=== PATIENT | female | born 1950 | race Two or more races ===

== ENCOUNTER 2020-05-07 07:58 | Day surgery (SDC) | payer MEDICARE, BC ==
[2020-05-07] VITALS (8 sets, daily range): BP systolic 97–129; BP diastolic 43–79
[~2020-05-07] VITALS: Ht 152.4 cm; Wt 57.2 kg
[~2020-05-07 07:58] MED LIST: ALENDRONATE SOD10 MG ORAL
[2020-05-07] MEDS ORDERED: LR 1000ml 1,000 ML IVLG SCH (08:18)
[2020-05-07] MEDS ORDERED: Midazolam 2mg/2ml Inj ONE (08:38)
[2020-05-07] MEDS ORDERED: fentaNYL 100 mcg/2 mL IV ONE (08:38)
--- NOTE | 2020-05-07 08:50 | Pre-Procedure Note/Attestation ---
Pre-Procedure Note/Attestation Complete Prior to Procedure Planned Procedure: not applicable Procedure Narrative: colonoscopy Indications for Procedure Pre-Operative Diagnosis: screening Attestation I attest that I discussed the nature of the procedure; its benefits; risks and complications; and alternatives (and the risks and benefits of such alternatives ), prior to the procedure, with the patient (or the patient's legal front desk representative). I attest that, if there was a reasonable possibility of needing a blood transfusion, the patient (or the patient's legal front desk representative) was given the [facility] standardized written summary, pursuant to the [place] Blood Safety Act ([place] Health and Safety Code # 1645, as amended). I attest that I re-evaluated the patient just prior to the surgery and that there has been no change in the patient's H&P, except as documented below: Rodolfo Quezada MD May 07, 2020 08:50
--- NOTE | 2020-05-07 08:51 | Short Stay Surgery H&P ---
History of Present Illness History of Present Illness Chief Complaint see office consult note HPI So Macario is a 69 year old female who was admitted on for Hx Of Polyps Patient History Allergies: Coded Allergies: No Known Allergies (Unverified , 04/21/15) Medication History Scheduled Alendronate Sodium* (Fosamax*), 10 MG ORAL DAILY, (Reported) Physical Exam Vital Signs Last Vital Signs Date Time Temp Pulse Resp B/P (MAP) Pulse Ox O2 Delivery O2 Flow Rate FiO2 05/07/20 08:40 97.4 59 18 97/64 97 Room Air Plan Attestation Are the patient's medical conditions optimized for surgery? Rodolfo Quezada MD May 07, 2020 08:51
[2020-05-07] MEDS ORDERED: LR 1000ml ONE (09:00)
--- NOTE | 2020-05-07 09:09 | Anethesia Preoperative Eval ---
Anesthesia Pre-op PMH/ROS General Date of Evaluation: May 07, 2020 Time of Evaluation: 08:49 Anesthesiologist: Andrae ASA Score: ASA 2 Mallampati Score Class I : Soft palate, uvula, fauces, pillars visible Class II: Soft palate, uvula, fauces visible Class III: Soft palate, base of uvula visible Class IV: Only hard plate visible Mallampati Classification: Class II Surgeon: Pilar Diagnosis: Colon CA screening Surgical Procedure: Colonoscopy Anesthesia History: none Family History: no anesthesia problems Allergies: Coded Allergies: No Known Allergies (Unverified , 04/21/15) Medications: see eMAR Patient NPO?: Yes Past Medical History Cardiovascular: Reports: HTN - mild; Denies: CAD, HI, valve dz, arrhythmia, other Pulmonary: Denies: asthma, COPD, ANGELITA, other Gastrointestinal/Genitourinary: Reports: GERD; Denies: CRI, ESRD, other Neurologic/Psychiatric: Denies: dementia, CVA, depression/anxiety, TIA, other Endocrine: Denies: DM, hypothyroidism, steroids, other HEENT: Denies: cataract (L), cataract (R), glaucoma, [place] (L), [place] (R), other Hematology/Immune: Denies: anemia, DVT, bleeding disorder, other Musculoskeletal/Integumentary: Denies: OA, RA, DJD, DDD, edema, other Other: other PMH Narrative: as above PSxH Narrative: see H&P Anesthesia Pre-op Phys. Exam Physician Exam Last Vital Signs Date Time Temp Pulse Resp B/P (MAP) Pulse Ox O2 Delivery O2 Flow Rate FiO2 05/07/20 08:40 97.4 59 18 97/64 97 Room Air Constitutional: NAD Neurologic: CN 2-12 intact Cardiovascular: RRR, no M/R/G Respiratory: CTA Gastrointestinal: S/NT/ND Airway Exam Mallampati Score: Class II MO: full Neck: flexible ROM: full Teeth: missing Dentures: no upper, no lower Anesthesia Pre-op A/P Risk Assessment & Plan Assessment: ASA 2 Plan: Gera Lowe MD May 07, 2020 09:09
--- NOTE | 2020-05-07 09:10 | Endoscopy Procedure Note ---
Endoscopy Procedure Note General Indication for Procedure: screening Procedures Performed: colonoscopy Operative Findings/Diagnosis: divericulosis Specimen: none Pt Tolerated Procedure Well: Yes Estimated Blood Loss: none Anesthesia Anesthesiologist: prasanth Anesthesia: MAC Inserted Devices Implant(s) used?: No Quality Quality of Bowel Preparation: Excellent Did scope reach the cecum?: Yes Was there any complications?: No GI Core Measures 50 yrs or older w/o bx or poly: No 10yrs. F/U recommended: Yes If not recommended, why?: Above average risk 18 years or older w/prev. colo: No Rodolfo Quezada MD May 07, 2020 09:10
--- NOTE | 2020-05-07 09:18 | Immediate Post-Op Evaluation ---
Immediate Post-Op Evalulation Immediate Post-Op Evalulation Procedure: Colonoscopy Date of Evaluation: May 07, 2020 Time of Evaluation: 09:17 IV Fluids: 600 Blood Products: none Estimated Blood Loss: none Urinary Output: none Blood Pressure Systolic: 108 Blood Pressure Diastolic: 70 Pulse Rate: 68 Respiratory Rate: 20 O2 Sat by Pulse Oximetry: 99 Temperature (Fahrenheit): 97.8 Pain Score (1-10): 1 Nausea: No Vomiting: No Complications none Patient Status: awake, patent, none Hydration Status: adequate Gera Abebe MD May 07, 2020 09:18
--- NOTE | 2020-05-07 09:58 | 48 Hour Post Anesthesia Eval ---
Post Anesthesia Evaluation Procedure: Colonoscopy Date of Evaluation: May 07, 2020 Time of Evaluation: 09:57 Blood Pressure Systolic: 103 0: 72 Pulse Rate: 64 Respiratory Rate: 18 Temperature (Fahrenheit): 97.6 O2 Sat by Pulse Oximetry: 98 Airway: patent Nausea: No Vomiting: No Pain Intensity: 1 Hydration Status: adequate Cardiopulmonary Status: stable Mental Status/LOC: patient returned to baseline Follow-up Care/Observations: n/a Post-Anesthesia Complications: none Follow-up care needed: ready to discharge Gera Abebe MD May 07, 2020 09:58
--- NOTE | 2020-05-07 10:44 | Procedure Note ---
DATE OF PROCEDURE: 05/07/2020 SURGEON: Rodolfo Quezada MD. REFERRING PHYSICIAN: Brit Lazaro MD. PROCEDURE: Colonoscopy. ANESTHESIA: Per Dr. Abebe. INSTRUMENT: Olympus adult flexible colonoscope. INDICATION: Screening colonoscopy. REASON FOR PROCEDURE: The procedure, risks, benefits, and possible consequences, including hemorrhage, aspiration, perforation and infection, and alternative treatments, were explained to the patient/legal guardian by Dr. Rodolfo Quezada and the patient/legal guardian understood and accepted these risks PROCEDURE IN DETAIL: After informed consent was obtained and the patient was adequately sedated, first rectal exam was performed, which was positive for internal hemorrhoids. Then, the scope was advanced from rectum into cecum then subsequently to terminal ileum. Quality of prep was very good. The patient had no polyp seen in this colonoscopy examination. The patient has evidence of diverticulosis scattered in the left colon. Retroflexion of rectum was performed, which showed evidence of internal hemorrhoids. SUMMARY OF FINDINGS: 1. Left-sided colonic diverticulosis. 2. Internal hemorrhoids. RECOMMENDATIONS: The patient to follow in the office for workup of SIBO. Repeat colonoscopy in 5 years. I want to thank Dr. Brit Lazaro for this kind referral. Rodolfo Quezada M.D. DR: EARL JOB#: [id number] CC: Brit Lazaro M.D.; Fax#: [phone]
== END 2020-05-07 09:40 | disposition home or self-care (01) ==
LOC: GAS 07:58
DX: Z12.11 Encounter for screening for malignant neoplasm of colon (principal); K57.90 Diverticulosis of intestine, part unspecified, without perforation or abscess without bleeding; K64.8 Other hemorrhoids; Z86.010 Personal history of colon polyps; I10 Essential (primary) hypertension; K21.9 Gastro-esophageal reflux disease without esophagitis
CPT/HCPCS: 94003; G0105; J2250; J2704; J3010; J7120; 94150

== ENCOUNTER 2020-05-13 09:38 | Outpatient (CLI) | payer MEDICARE, BC ==
[~2020-05-13] VITALS: Ht 144.8 cm; Wt 57.2 kg
[2020-05-13 13:49] VITALS: BP 85/59
--- NOTE | 2020-05-13 14:29 | Progress Note ---
DATE: 05/13/2020 SUBJECTIVE: The patient complained of some chronic cough and constipation. PHYSICAL EXAMINATION: GENERAL: A well-developed female, in no acute distress HEENT: Normocephalic and atraumatic. Sclerae anicteric. NECK: Supple. No evidence of obvious lymphadenopathy. CARDIOVASCULAR: Regular rate and rhythm. Plus S1, S2. LUNGS: Clear to auscultation bilaterally. ABDOMEN: Positive bowel sounds. Soft and nontender. No rebound. No guarding. No peritoneal sign. EXTREMITIES: No cyanosis, no clubbing, no edema. ASSESSMENT AND PLAN: 1. Diverticulosis. Last colonoscopy on May 07, 2020. Recommend repeat colonoscopy in five years. 2. Hemorrhoids, asymptomatic. No treatment at this time needed. 3. Constipation, 145 mcg p.o. daily. 4. SIBO. Order Xifaxan for 14 days. The patient to come to follow up in the office in three months. Rodolfo Quezada M.D. DR: CAMPOS JOB#: [id number] CC:
== END 2020-05-13 11:38 | disposition home or self-care (01) ==
LOC: PAN 09:38
DX: R05 Cough (principal); K59.00 Constipation, unspecified; K57.90 Diverticulosis of intestine, part unspecified, without perforation or abscess without bleeding; K64.9 Unspecified hemorrhoids; K56.609 Unspecified intestinal obstruction, unspecified as to partial versus complete obstruction
CPT/HCPCS: 99212

== ENCOUNTER 2020-05-27 08:41 | Outpatient (CLI) | payer MEDICARE, BC ==
--- NOTE | 2020-05-27 09:31 | General Progress Note ---
Assessment/Plan Assessment/Plan: ASSESSMENT AND PLAN: 1. Diverticulosis. Last colonoscopy on May 07, 2020. Recommend repeat colonoscopy in five years. 2. Hemorrhoids, asymptomatic. No treatment at this time needed. 3. Constipation, ____linzess_ 145 mcg p.o. daily. 4. SIBO. Order Xifaxan for 14 days. The patient to come to follow up in the office in three roberta 5. GERD>>> plan EGD Subjective Allergies: Coded Allergies: No Known Allergies (Unverified , 04/21/15) Objective General Appearance: alert EENT: normal ENT inspection Neck: supple Cardiovascular: normal rate Respiratory/Chest: decreased breath sounds Abdomen: normal bowel sounds, non tender, soft Extremities: non-tender Rodolfo Quezada MD May 27, 2020 09:31
[2020-05-27 14:19] VITALS: BP 101/60
== END 2020-05-27 10:41 | disposition home or self-care (01) ==
LOC: PAN 08:41
DX: K21.9 Gastro-esophageal reflux disease without esophagitis (principal); K59.00 Constipation, unspecified; K57.90 Diverticulosis of intestine, part unspecified, without perforation or abscess without bleeding; K64.9 Unspecified hemorrhoids; K56.609 Unspecified intestinal obstruction, unspecified as to partial versus complete obstruction

== ENCOUNTER 2020-10-07 08:55 | Outpatient (CLI) | payer MEDICARE, BC ==
[~2020-10-07 08:55] MED LIST changes: +VITAMIN D PO; +XIFAXAN550 MG ORAL
== END 2020-10-07 10:55 | disposition home or self-care (01) ==
LOC: PAN 08:55
DX: R10.9 Unspecified abdominal pain (principal)
CPT/HCPCS: 99212